=== PATIENT | male | born 1940 | race Caucasian/White ===

== ENCOUNTER → 2016-12-24 | Outpatient (CLI) | payer MEDICARE ==
[~2016-12-24] VITALS: Ht 172.7 cm; Wt 72.7 kg
[~2016-12-24] MED LIST: ACET-2321 PO; ASCO-296 PO; ASPI-917 PO; COD1CAPS PO; DOCU-168 PO; MAGN296S30 PO; METAMUCIL POWD PO; METO25TA6 PO; MULT-806 PO; OXYC-544 PO; POLY17PO18 PO; REGADENOSON 0.4mg/5ml INJECTION IV ONE; SALINE FLUSH 10ml SYRINGE ONE; SENN-125 PO
--- NOTE | 2016-12-25 10:08 | ADENOSINEF ---
PHARMACOLOGICAL/LOW-LEVEL EXERCISE STRESS NUCLEAR SCAN DATE OF SERVICE 12/24/2016 INDICATIONS I49.49. PROCEDURE The patient underwent pharmacological stress nuclear scan after injection of a 99mTc Myoview dose of 12.5 mCi and a Lexiscan dose of 0.4 mg for low-level exercise. Full treadmill was not performed due to patient's prior hip replacement and advised not to run. Lexiscan was followed by a 99mTc Myoview dose of 33.4 mCi. Stress and rest perfusion images were obtained per protocol. Resting blood pressure 146/83, pulse rate 58 beats per minute. Blood pressure whit to 174/84, heart rate whit to 83-87 beats per minute which is 60% of age-predicted maximum heart rate. Rest EKG showed sinus rhythm, bradycardia at 50 beats per minute. During pharmacological/low-level exercise stress test there was minimal horizontal to slightly upsloped ST-depression less than or about 0.5 mm - does not meet the EKG criteria for ischemia. PVCs were present during recovery including ventricular bigeminy. Patient remained entirely asymptomatic without any chest pain or palpitations. Occasional fusion beats are present. Stress and rest perfusion images were reviewed. Slightly reduced uptake in the inferior wall, more evident on rest images. Minimal artifact related to adjacent gut activity. Myocardial perfusion images are considered normal. No scintigraphic evidence of ischemia or scar.. Gated images showed normal wall motion, normal contractility, normal left ventricular systolic function. Ejection fraction measured 54% on stress images and 55% on rest images. IMPRESSION 1. Pharmacological/low-level exercise stress test clinically negative for angina. 2. Electrically frequent PVCs noted during recovery including run of ventricular bigeminy, entirely asymptomatic. This is a nonspecific finding. No ST-depression or elevation diagnostic of ischemia. 3. Myocardial perfusion images are normal, indicative of no ischemia or scar. Normal LVEF, as above. MTDD
== END ==
LOC: IMA 08:51
PROVIDERS: ATTEND Internal Medicine Cardiovascular Disease
DX: I49.3 Ventricular premature depolarization (principal)
CPT/HCPCS: 78452; 93017; A9502; J2785